=== PATIENT | male | born 1995 | race Caucasian/White ===

== ENCOUNTER 2020-01-29 09:27 | Emergency (ER) | payer SELFPAY ==
[~2020-01-29] VITALS: Ht 188 cm; Wt 70.3 kg
--- NOTE | 2020-01-29 09:40 | NUR ---
[id number] from home c/o abdominal pain, +n/v x3 hrs, admit to cannabis use last night. Patient a/ox4, still noted with vomiting, patient stated he doesnt feel well. Attached to the engine monitor.
[2020-01-29] MEDS ORDERED: FAMOTIDINE/PF INJ 20 MG/2 ML VIAL IV ONE ×2 (09:44→10:00)
[2020-01-29] MEDS ORDERED: ONDANSETRON HCL/PF 4 MG/2 ML VIAL ONE (09:44)
[2020-01-29] MEDS ORDERED: LORAZEPAM INJ 2 MG/ML VIAL ONE (09:44)
[2020-01-29 10:00] LABS: BASOPHILS % (AUTO) 0.3 % (0.0-2.0); EOSINOPHILS % (AUTO) 0.5 % (0.0-6.0); HEMATOCRIT 46 % (39-51); LYMPHOCYTES # (AUTO) 1.4 /CMM (0.8-4.8); LYMPHOCYTES % (AUTO) 15.6 % (20.0-44.0); MEAN CORPUSCULAR HGB CONC 35 g/dl (31.0-36.0); MEAN CORPUSCULAR VOLUME 92 fL (80-96); MONOCYTES # (AUTO) 0.5 /CMM (0.1-1.30); MONOCYTES % (AUTO) 5.8 % (2.0-12.0); NEUTROPHILS % (AUTO) 77.8 % (43.0-81.0); PLATELET COUNT (AUTO) 208 /CMM (150-450); RED BLOOD CELL COUNT(AUTO) 5.02 MIL/uL (4.5-6.0)
[2020-01-29] MEDS ORDERED: LORAZEPAM INJ 2 MG/ML VIAL IV ONE (10:00)
[2020-01-29] MEDS ORDERED: ONDANSETRON HCL/PF 4 MG/2 ML VIAL IVP ONE (10:00)
[2020-01-29] MEDS ORDERED: IV NS 0.9% 1,000 ML BAG IV ONE (10:00)
[2020-01-29 10:11] LABS: CALCIUM, SERUM 9.2 mg/dL (8.5-10.1); CREATININE 1.1 mg/dL (0.6-1.3); POTASSIUM 3.8 mmol/L (3.5-5.1)
[2020-01-29 10:16] LABS: ALBUMIN 4.5 g/dL (3.4-5.0); BILIRUBIN,DIRECT 0.1 mg/dL (0.0-0.2); BILIRUBIN,TOTAL 0.4 mg/dL (0.2-1.0); TOTAL PROTEIN, SERUM 7.6 g/dL (6.4-8.2)
[2020-01-29] MEDS ORDERED: diphenhydrAMINE HCL 50 MG/ML VIAL ONE (10:19)
[2020-01-29] MEDS ORDERED: METOCLOPRAMIDE HCL 10 MG/2 ML VIAL ONE (10:19)
[2020-01-29] MEDS ORDERED: METOCLOPRAMIDE HCL 10 MG/2 ML VIAL IV ONE (10:30)
[2020-01-29] MEDS ORDERED: diphenhydrAMINE HCL 50 MG/ML VIAL IV ONE (10:30)
--- NOTE | 2020-01-29 11:00 | NUR ---
PATIENT A/OX4, VOMITING HAS CEASED. PATIENT RESTING. VITALS STABLE.
--- NOTE | 2020-01-29 11:35 | NUR ---
friend will roll picker patient. eta 10min
--- NOTE | 2020-01-29 11:37 | NUR ---
Patient discharged to home in stable condition. Written and verbal after care instructions given. Patient verbalizes understanding of instruction. Waiting for transportation.
[2020-01-29] MEDS ORDERED: ONDANSETRON 4 MG TAB.RAPDIS ONE (11:55)
[2020-01-29] MEDS ORDERED: ONDANSETRON 4 MG TAB.RAPDIS SL ONE (12:00)
[2020-01-29 12:11] VITALS: BP 119/65
== END 2020-01-29 12:16 | disposition home or self-care (01) ==
LOC: ER 09:32
DX: R11.2 Nausea with vomiting, unspecified (principal); F12.10 Cannabis abuse, uncomplicated; R10.10 Upper abdominal pain, unspecified
CPT/HCPCS: 36415; 80048; 80076; 83690; 85025; 96361; 96374; 96375; 99284; A4216; J1200; J2060; J2405; J2765; J3490; J7030; Q0162